=== PATIENT | female | born 1995 ===

== ENCOUNTER 2017-12-18 16:41 | Emergency (ER) | payer OTHER ==
[2017-12-18 17:30] VITALS: BP 127/87; PULSE 104; RESP 18; TEMP 98.7; O2SAT 100
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
== END 2017-12-18 19:26 | disposition home or self-care (01) ==
LOC: H.ER 16:41
DX: S49.91XA Unspecified injury of right shoulder and upper arm, initial encounter (principal); V43.52XA Car driver injured in collision with other type car in traffic accident, initial encounter; Y92.410 Unspecified street and highway as the place of occurrence of the external cause